=== PATIENT | female | born 1980 | race Caucasian/White ===

== ENCOUNTER 2019-06-12 07:22 | Emergency (ER) | payer OTHER ==
[~2019-06-12] VITALS: Ht 175.3 cm; Wt 86.2 kg
[2019-06-12 07:23] VITALS: Ht 175.3 cm; Wt 86.2 kg
[2019-06-12 07:53] LABS: BASOPHIL % 0.4 % (0-2); PLATELET COUNT 281 x10^3mcL (130-400); RED CELL DISTRIBUTION WIDTH 13.4 % (11.5-14.5)
[2019-06-12 08:02] LABS: CALCIUM 8.7 mg/dL (8.5-10.1); CARBON DIOXIDE 23.2 mmol/L (21-32); CHLORIDE SERUM 107 mmol/L (98-107); GFR1 > 60 mL/min; GLUCOSE SERUM 120 mg/dL (74-106); POTASSIUM SERUM 3.7 mmol/L (3.5-5.1); SODIUM SERUM 142 mmol/L (136-145)
[2019-06-12 08:08] LABS: ALKALINE PHOSPHATASE 57 U/L (46-116); ALT/SGPT 22 U/L (14-59); AST/SGOT 20 U/L (15-37); BILIRUBIN TOTAL 0.6 mg/dL (0.20-1.00); LIPASE 107 IU/L (73-393); TOTAL PROTEIN, SERUM 7.2 g/dL (6.4-8.2)
[2019-06-12 11:16] VITALS: BP 142/69
== END 2019-06-12 11:16 | disposition home or self-care (01) ==
LOC: ED 07:22
PROVIDERS: Emergency Medicine
DX: N20.2 Calculus of kidney with calculus of ureter (principal)
CPT/HCPCS: J1885; J2270; J2405; J3010; J7030